=== PATIENT | male | born 1985 | race Caucasian/White ===

== ENCOUNTER 2016-10-17 22:30 | Emergency (ER) | payer BC ==
[~2016-10-17] VITALS: Ht 180.3 cm; Wt 164.3 kg
[~2016-10-17 22:30] MED LIST: CIPRO500 MG PO; NORCO 5/3251 TABLET PO; OMEPRAZOLE40 M1 PO; PERCOCET 5/31 TABLET PO
[2016-10-17 23:27] LABS: HEMATOCRIT 38.8 % (38.0-50.0); MCH 27.8 PG (29.0-34.0); MCHC 33.5 G/DL (30.0-36.0); MCV 82.9 FL (86-99); MEAN PLAT.VOLUME 10.2 uM^3 (9.0-12.4); PLATELET COUNT 232 K/uL (156-360); RBC DIS.WIDTH-CV 12.8 % (11.8-14.6); RBC DIS.WIDTH-SD 38.1 % (39-53); RED BLOOD COUNT 4.68 M/uL (4.00-5.50); WHITE BLOOD COUNT 9.5 K/uL (4.1-10.2)
[2016-10-17 23:39] LABS: CHLORIDE 105 mEq/L (99-109); POTASSIUM 4.2 mEq/L (3.7-5.4); SODIUM 140 mEq/L (136-147)
[2016-10-17 23:41] LABS: GLUCOSE 118 mg/dL (70-99)
[2016-10-17 23:43] LABS: ANION GAP 10 MEQ/L (2-14); TOTAL BILIRUBIN 0.7 mg/dL (0.0-1.0)
[2016-10-17 23:45] LABS: ALKALINE PHOSPHATASE 87 IU/L (3-129); GFR ESTIMATE (CALCULATED) > 59 mL/min/
[2016-10-17 23:46] LABS: UREA NITROGEN (BUN) 16 mg/dL (9-23)
[2016-10-17 23:49] LABS: LIPASE 13 U/L (1.0-51.0)
[2016-10-17] MEDS ORDERED: HYOSCYAMINE0.125 M1 SL (23:59)
[2016-10-18] MEDS ORDERED: OMEPRAZOLE40 M1 PO (00:01)
[2016-10-18 01:08] VITALS: BP 121/55
== END 2016-10-18 01:13 | disposition home or self-care (01) ==
LOC: EME 22:30 → RME 22:30
PROVIDERS: Nurse Practitioner Family
DX: R10.11 Right upper quadrant pain (principal); R11.2 Nausea with vomiting, unspecified
CPT/HCPCS: 76705; 80053; 83690; 85027; 99281; 99285; J2270; J2405; J7030

== ENCOUNTER → 2016-10-18 | Outpatient (CLI) | payer BC ==
[~2016-10-18] MED LIST changes: +HYOSCYAMINE0.125 M1 SL
== END | disposition home or self-care (01) ==
LOC: NUC 12:52
DX: K82.9 Disease of gallbladder, unspecified (principal); R10.11 Right upper quadrant pain; R11.0 Nausea
CPT/HCPCS: 78227; A9537; J2805

== ENCOUNTER 2016-11-14 11:31 | Day surgery (SDC) | payer BC ==
[~2016-11-14] VITALS: Ht 177.8 cm; Wt 161.0 kg
[~2016-11-14 11:31] MED LIST changes: +ULTRAM50 MG PO
[2016-11-14 12:07] VITALS: BP 136/83
[2016-11-14] MEDS ORDERED: PERCOCET 5/31 TABLET PO (17:03)
[2016-11-14] MEDS ORDERED: COLACE100 MG PO (17:03)
[2016-11-14 18:50] VITALS: BP 167/80
[2016-11-14 19:54] VITALS: BP 148/74
== END 2016-11-14 21:03 | disposition home or self-care (01) ==
LOC: SDC 11:31
PROC: 0FT44ZZ Resection of Gallbladder, Percutaneous Endoscopic Approach (ICD-10-PCS; principal; 2016-11-14)
DX: K80.10 Calculus of gallbladder with chronic cholecystitis without obstruction (principal); F41.9 Anxiety disorder, unspecified; R53.83 Other fatigue; I10 Essential (primary) hypertension; E66.01 Morbid (severe) obesity due to excess calories; Z68.43 Body mass index [BMI] 50.0-59.9, adult; K21.9 Gastro-esophageal reflux disease without esophagitis
CPT/HCPCS: 88304; J0330; J1100; J1170; J2250; J2405; J2710; J2765; J3010